=== PATIENT | female | born 1985 | race Caucasian/White ===

== ENCOUNTER 2017-04-04 12:04 | Observation (INO) | payer OTHER ==
[~2017-04-04] VITALS: Ht 167.6 cm; Wt 91.5 kg
[2017-04-04] MEDS ORDERED: GLUCOPHAGE500 MG PO (17:43)
[2017-04-04] MEDS ORDERED: WELLBUTRIN SR150 MG PO (17:44)
[2017-04-04] MEDS ORDERED: OMEPRAZOLE40 MG PO (17:45)
[2017-04-05 09:19] VITALS: Ht 167.6 cm; Wt 91.5 kg
[2017-04-06] MEDS ORDERED: QUESTRAN LIG1 PACKET PO (11:16)
[2017-04-06] MEDS ORDERED: LEVSIN/ANASP0.125 MG SL (11:17)
[2017-04-06 12:09] VITALS: BP 116/70
== END 2017-04-06 14:46 | disposition home or self-care (01) ==
LOC: D.ER 12:04 → D.M2 15:59 → OBSVTIME 15:59 → D.M2 15:59
PROVIDERS: ADMIT Family Medicine
DX: K62.1 Rectal polyp (principal); K64.8 Other hemorrhoids; K29.70 Gastritis, unspecified, without bleeding; K20.9 Esophagitis, unspecified; K29.80 Duodenitis without bleeding; K44.9 Diaphragmatic hernia without obstruction or gangrene; K21.9 Gastro-esophageal reflux disease without esophagitis; E11.65 Type 2 diabetes mellitus with hyperglycemia; F41.9 Anxiety disorder, unspecified; G43.909 Migraine, unspecified, not intractable, without status migrainosus; Z72.0 Tobacco use

== ENCOUNTER 2017-10-12 16:11 | Observation (INO) | payer OTHER ==
[~2017-10-12] VITALS: Ht 167.6 cm; Wt 95.9 kg
[~2017-10-12 16:11] MED LIST: GLUCOPHAGE500 MG PO; LEVSIN/ANASP0.125 MG SL; OMEPRAZOLE40 MG PO; QUESTRAN LIG1 PACKET PO; WELLBUTRIN SR150 MG PO
[2017-10-12] MEDS ORDERED: VALIUM10 MG PO (16:35)
[2017-10-12 17:15] LABS: BASOPHILS 0.2 % (0-2); EOSINOPHILS 1.7 % (0-7); HEMATOCRIT 41.3 % (36.0-48.0); HEMOGLOBIN 13.9 g/dL (12-16); IMMATURE GRANULOCYTES 0.3 % (0-5); LYMPHOCYTES 38.1 % (15-50); MCH 29.2 pg (26.0-34.0); MCHC 33.7 g/dL (31.0-37.0); MCV 86.8 fL (80.0-100.0); MEAN PLATELET VOLUME 9.8 fL (7.4-10.4); NEUTROPHILS 52.7 % (40-80); PLATELET COUNT 282 10x3/uL (130-400); RBC 4.76 10x6/uL (4.00-5.40); WBC 8.8 10x3/uL (4.8-10.8)
[2017-10-12 17:39] LABS: ALKALINE PHOSPHATASE 56 U/L (46-116); ALT (SGPT) 21 U/L (10-68); BILIRUBIN - TOTAL 0.42 mg/dL (0.2-1.3); CALC OSMOLALITY 281 mosm/kg (275-300); CALCIUM 9.1 mg/dL (8.5-10.1); CARBON DIOXIDE 26.3 mmol/L (21.0-32.0); CHLORIDE - SERUM 106 mmol/L (98-107); CREATININE - SERUM 0.7 mg/dL (0.6-1.3); GLUCOSE 119 mg/dL (74-106); POTASSIUM - SERUM 3.8 mmol/L (3.5-5.1); PROTEIN - SERUM 7.5 g/dL (6.4-8.2); SODIUM 142 mmol/L (136-145); UREA NITROGEN 8 mg/dL (7-18); eGFR NON AFRICAN AMERICAN > 90 mL/min (90-120)
[2017-10-12 17:43] LABS: INR 1.09 (0.85-1.17); PROTIME 13.7 SECONDS (11.6-15.0)
[2017-10-12 18:12] VITALS: BP 151/83
[2017-10-12 20:17] VITALS: BMI 34.1
[2017-10-12 20:23] VITALS: BP 119/78
[2017-10-13 00:19] VITALS: BP 108/65
[2017-10-13 03:38] VITALS: BP 110/66
[2017-10-13 08:04] VITALS: Ht 167.6 cm; Wt 95.9 kg
[2017-10-13 08:11] VITALS: BP 118/64
[2017-10-13] MEDS ORDERED: HYDROCODON-ACE1 EAC7 PO (11:41)
[2017-10-13 12:46] VITALS: BP 111/67
== END 2017-10-13 14:50 | disposition home or self-care (01) ==
LOC: D.MS 16:11 → OBSVTIME 16:11 → D.MS 16:11
PROVIDERS: Family Medicine
DX: N94.0 Mittelschmerz (principal); E11.65 Type 2 diabetes mellitus with hyperglycemia

== ENCOUNTER 2018-02-06 12:39 | Emergency (ER) | payer OTHER ==
[~2018-02-06] VITALS: Ht 167.6 cm; Wt 95.0 kg
[~2018-02-06 12:39] MED LIST changes: +HYDROCODON-ACE1 EAC7 PO; +VALIUM10 MG PO
[2018-02-06 12:48] VITALS: Ht 167.6 cm; Wt 95.0 kg
[2018-02-06] MEDS ORDERED: ABILIFY2 MG PO (12:49)
[2018-02-06] MEDS ORDERED: LIPITOR10 MG PO (12:49)
[2018-02-06 13:16] LABS: BASOPHILS 0.2 % (0-2); EOSINOPHILS 1.5 % (0-7); HEMATOCRIT 40.9 % (36.0-48.0); HEMOGLOBIN 14.2 g/dL (12-16); IMMATURE GRANULOCYTES 0.2 % (0-5); LYMPHOCYTES 31.6 % (15-50); MCH 29.9 pg (26.0-34.0); MCHC 34.7 g/dL (31.0-37.0); MCV 86.1 fL (80.0-100.0); MONOCYTES 5.8 % (2-11); NEUTROPHILS 60.7 % (40-80); PLATELET COUNT 282 10x3/uL (130-400); RBC 4.75 10x6/uL (4.00-5.40); RDW 13.8 % (11.5-14.5)
[2018-02-06 13:28] LABS: APPEARANCE CLEAR (CLEAR); COLOR YELLOW (YELLOW); GLUCOSE NEGATIVE (NEGATIVE); KETONE NEGATIVE (NEGATIVE); NITRITE NEGATIVE (NEGATIVE); PROTEIN NEGATIVE (NEGATIVE)
[2018-02-06 13:29] LABS: BACTERIA FEW /hpf (NONE SEEN); BILIRUBIN NEGATIVE (NEGATIVE); EPITHELIAL CELLS 0-5 /hpf (0-5); MUCUS <1+ /lpf (NONE SEEN); RED CELLS - URINE 0-5 /hpf (0-5); UROBILINOGEN NORMAL (NORMAL); WHITE CELLS - URINE RARE /hpf (0-5)
[2018-02-06 13:40] LABS: ALBUMIN 3.9 g/dL (3.4-5.0); ALKALINE PHOSPHATASE 59 U/L (46-116); ALT (SGPT) 16 U/L (10-68); AMYLASE - SERUM 64 U/L (25-115); BILIRUBIN - TOTAL 0.28 mg/dL (0.2-1.3); CALC OSMOLALITY 280 mosm/kg (275-300); CALCIUM 9.3 mg/dL (8.5-10.1); CARBON DIOXIDE 28.1 mmol/L (21.0-32.0); CHLORIDE - SERUM 104 mmol/L (98-107); CREATININE - SERUM 0.6 mg/dL (0.6-1.3); GLUCOSE 154 mg/dL (74-106); LIPASE 279 U/L (73-393); POTASSIUM - SERUM 3.9 mmol/L (3.5-5.1); PROTEIN - SERUM 7.4 g/dL (6.4-8.2); SODIUM 140 mmol/L (136-145); UREA NITROGEN 9 mg/dL (7-18); eGFR NON AFRICAN AMERICAN > 90 mL/min (90-120)
[2018-02-06] MEDS ORDERED: LOMOTIL TABLET1 TAB PO (16:47)
[2018-02-06 17:53] VITALS: BP 118/83
== END 2018-02-06 18:04 | disposition home or self-care (01) ==
LOC: D.ER 12:39
PROVIDERS: Family Medicine
DX: R10.30 Lower abdominal pain, unspecified (principal); R11.2 Nausea with vomiting, unspecified; F17.200 Nicotine dependence, unspecified, uncomplicated

== ENCOUNTER → 2018-04-06 17:04 | Outpatient (CLI) | payer OTHER ==
[2018-02-06 12:48] VITALS: BMI 33.8
[~2018-04-06 17:04] MED LIST changes: +ABILIFY2 MG PO; +LIPITOR10 MG PO; +LOMOTIL TABLET1 TAB PO
== END | disposition home or self-care (01) ==
LOC: D.CT 17:04
DX: R31.9 Hematuria, unspecified (principal)

== ENCOUNTER 2019-02-08 19:54 | Inpatient (IN) | payer OTHER ==
[~2019-02-08] VITALS: Ht 167.6 cm; Wt 95.3 kg
[2019-02-08 20:34] LABS: BASOPHILS 0.2 % (0-2); EOSINOPHILS 1.3 % (0-7); HEMATOCRIT 38.8 % (36.0-48.0); HEMOGLOBIN 14.1 g/dL (12-16); IMMATURE GRANULOCYTES 0.1 % (0-5); MCH 31.6 pg (26.0-34.0); MCHC 36.3 g/dL (31.0-37.0); MEAN PLATELET VOLUME 9.5 fL (7.4-10.4); MONOCYTES 7.3 % (2-11); NEUTROPHILS 50.1 % (40-80); PLATELET COUNT 279 10x3/uL (130-400); RBC 4.46 10x6/uL (4.00-5.40); RDW 12.4 % (11.5-14.5); WBC 9.2 10x3/uL (4.8-10.8)
[2019-02-08 20:41] VITALS: BP 121/73
[2019-02-08 20:48] LABS: ALBUMIN 4.1 g/dL (3.4-5.0); ALKALINE PHOSPHATASE 59 U/L (46-116); ALT (SGPT) 32 U/L (10-68); BILIRUBIN - TOTAL 0.39 mg/dL (0.2-1.3); CALCIUM 9.8 mg/dL (8.5-10.1); CHLORIDE - SERUM 102 mmol/L (98-107); CREATININE - SERUM 0.7 mg/dL (0.6-1.3); POTASSIUM - SERUM 3.9 mmol/L (3.5-5.1); PROTEIN - SERUM 7.6 g/dL (6.4-8.2); SODIUM 138 mmol/L (136-145); UREA NITROGEN 5 mg/dL (7-18); eGFR NON AFRICAN AMERICAN > 90 mL/min (90-120)
[2019-02-08 20:51] LABS: AMYLASE - SERUM 51 U/L (25-115); LIPASE 169 U/L (73-393)
[2019-02-08 20:52] LABS: CALC OSMOLALITY 272 mosm/kg (275-300); GLUCOSE 95 mg/dL (74-106); TROPONIN-I < 0.017 ng/mL (0.000-0.060)
[2019-02-08 21:30] LABS: APPEARANCE CLEAR (CLEAR); COLOR STRAW (YELLOW)
[2019-02-08 21:31] LABS: BILIRUBIN NEGATIVE (NEGATIVE); GLUCOSE NEGATIVE (NEGATIVE); KETONE NEGATIVE (NEGATIVE); NITRITE NEGATIVE (NEGATIVE); PROTEIN NEGATIVE (NEGATIVE); SPECIFIC GRAVITY 1.005 (1.005-1.020); UROBILINOGEN NORMAL (NORMAL)
[2019-02-08 22:37] VITALS: BP 117/74
[2019-02-08 23:53] VITALS: BP 117/75
[2019-02-09 00:45] VITALS: BP 109/61
[2019-02-09 00:54] VITALS: BP 109/61; BMI 33.9
[2019-02-09 04:00] VITALS: BP 90/44
[2019-02-09 06:28] LABS: BASOPHILS 0.3 % (0-2); EOSINOPHILS 3.6 % (0-7); HEMATOCRIT 37.2 % (36.0-48.0); HEMOGLOBIN 12.8 g/dL (12-16); IMMATURE GRANULOCYTES 0.1 % (0-5); LYMPHOCYTES 36.9 % (15-50); MCH 30.8 pg (26.0-34.0); MCHC 34.4 g/dL (31.0-37.0); MEAN PLATELET VOLUME 9.7 fL (7.4-10.4); MONOCYTES 10.1 % (2-11); PLATELET COUNT 256 10x3/uL (130-400); RBC 4.16 10x6/uL (4.00-5.40); RDW 12.5 % (11.5-14.5)
[2019-02-09 06:30] LABS: ALBUMIN 3.3 g/dL (3.4-5.0); ALKALINE PHOSPHATASE 48 U/L (46-116); ALT (SGPT) 33 U/L (10-68); BILIRUBIN - TOTAL 0.49 mg/dL (0.2-1.3); CALC OSMOLALITY 279 mosm/kg (275-300); CALCIUM 8.5 mg/dL (8.5-10.1); CARBON DIOXIDE 28.6 mmol/L (21.0-32.0); CHLORIDE - SERUM 106 mmol/L (98-107); CREATININE - SERUM 0.7 mg/dL (0.6-1.3); GLUCOSE 112 mg/dL (74-106); POTASSIUM - SERUM 3.9 mmol/L (3.5-5.1); PROTEIN - SERUM 6.2 g/dL (6.4-8.2); SODIUM 141 mmol/L (136-145); UREA NITROGEN 6 mg/dL (7-18); eGFR NON AFRICAN AMERICAN > 90 mL/min (90-120)
[2019-02-09 06:46] LABS: MCV 89.4 fL (80.0-100.0); WBC 6.7 10x3/uL (4.8-10.8)
[2019-02-09 08:00] VITALS: BP 106/52
--- NOTE | 2019-02-09 08:44 | NUR ---
PATIENT GIVEN MORPHINE AND ZOFRAN FOR RIGHT UPPER QUAD PAIN AND NAUSEA, AND IS RESTING NO WITH EYES CLOSED. CL IN REACH
[2019-02-09 10:47] VITALS: Ht 167.6 cm; Wt 95.3 kg
--- NOTE | 2019-02-09 17:01 | NUR ---
PATIENT GIVEN MORPHINE AND ZOFRAN IV FOR NAUSEA AND ABDOMINAL PAIN. CL IN REACH
[2019-02-09 20:00] VITALS: BP 126/70
--- NOTE | 2019-02-09 20:09 | MORECARE ---
CASE MANAGEMENT DISCHARGE SUMMARY PATIENT: VISHAL TAYLOR UNIT: [id number] ADM DATE: 02/08/19 AGE: 33 : 81 SEX: F [facility] AUTHOR: TORIE MONACO PHYSICIAN: REFERRING PHYSICIAN: CLEMENTE ROY MD DATE OF SERVICE: 02/09/19 Discharge Plan Patient Name: VISHAL TAYLOR Facility: [facility]:[place] : 1985 Planned Disposition: Home Anticipated Discharge Date: Discharge Date: Expected LOS: Initial Reviewer: [email or web address] Initial Review Date: 02/09/2019 Generated: 02/09/19 9:09 pm Patient Name: VISHAL TAYLOR Page [id number] at 2008 All edits/amendments must be made on the electronic document DICTATION DATE: 02/09/192008 [place]O K[place]A KAUPAPA MAORI: JUWAN 02/09/192008 RPT#: [id number] DC DATE: STATUS: ADM IN [facility] [address] [place] [address] END OF REPORT
--- NOTE | 2019-02-09 20:16 | MORECARE ---
CASE MANAGEMENT DISCHARGE SUMMARY PATIENT: VISHAL TAYLOR UNIT: [id number] ADM DATE: 02/08/19 AGE: 33 : 81 SEX: F ROOM/BED: D.1205 AUTHOR: JACINDA,DOC PHYSICIAN: REFERRING PHYSICIAN: CLEMENTE ROY MD DATE OF SERVICE: 02/09/19 Discharge Plan Patient Name: VISHAL TAYLOR Facility: [facility]:[place] : 1985 Planned Disposition: Home Anticipated Discharge Date: Discharge Date: Expected LOS: Initial Reviewer: [email or web address] Initial Review Date: 02/09/2019 Generated: 02/09/19 9:15 pm Comments DCP- Discharge Planning Updated by [email or web address]: Mary Martinez on 02/09/19 7:[address] Patient Name: VISHAL TAYLOR Admission Status: ER Accout number: [id number] Admission Date: 02-08-2019 : 1985 Admission Diagnosis:RIGHT UPPER QUADRANT PAIN Attending: CLEMENTE FAIRBANKS Current LOS: 1 Anticipated DC Date: Planned Disposition: Home [facility] [place] Discharge Planning Comments: CM met with patient and spouse (Maria Esther) at bedside after explaining CM role and obtaining verbal consent. Patient lives at home with her Maria Esther and plans to return there upon discharge. Patient feels this would be a safe discharge. CM discussed availability / needs of home health and medical equipment. Patient denies any discharge needs at this time. Patient states she will have her drive her home upon discharge. CM will continue to follow and assist as needed with discharge planning / needs. Maintenance Planner: Mary Martinez DCPIA - Discharge Planning Initial Assessment Updated by [email or web address]: Mary Martinez on 02/09/19 8:10 pm * Is the patient Alert and Oriented? Yes * How many steps to enter\exit or inside your home? * PCP LES * [facility] * Preadmission Environment Home with Family * ADLs Independent * Equipment None * List name and contact numbers for known caregivers / representatives who currently or will assist patient after discharge: MARIA ESTHER TAYLOR - SPOUSE- [phone] * Verbal permission to speak to the caregivers and representatives has been obtained from the patient. Yes * Community resources currently utilized None * Additional services required to return to the preadmission environment? No * Can the patient safely return to the preadmission environment? Yes * Has this patient been hospitalized within the prior 30 days at any hospital? No Last DP export: 02/09/19 7:09 p Patient Name: VISHAL TAYLOR Page [id number] at 2016 All edits/amendments must be made on the electronic document DICTATION DATE: 02/09/192014 CERTIFIED TUMOR REGISTRAR: JUWAN 02/09/192014 RPT#: [id number] DC DATE: STATUS: ADM IN [facility] [address] [place] [address] END OF REPORT
[2019-02-10] VITALS: BP 99/38
[2019-02-10 04:11] VITALS: BP 112/74
--- NOTE | 2019-02-10 07:55 | NUR ---
PT IS AOX4 RESP EVEN AND NONLABORED PT DENIES NEEDS AT THIS TIME. LUNG SOUNDS CLEAR HRR, NO EDEMA NOTED. IV TO RIGHT WRIST PATENT AND INTACT AT THIS TIME. SRX2 BED AT LOWEST POSITION AND LOCKED CALL LIGHT WITHIN REACH WILL CONTINUE TO MONITOR
[2019-02-10 09:34] VITALS: BP 108/75
--- NOTE | 2019-02-10 19:45 | NUR ---
PATIENT RESTING IN BED WITH GUESTS AT BEDSIDE AND NO S/S OF DISTRESS. PATIENT DENIES NEEDS AT THIS TIME. BED IN LOWEST POSITION AND CALL LIGHT WITHIN REACH. ENCOURAGED THE PATIENT TO CALL IF SHE HAS NEEDS. WILL CONTINUE TO MONITOR.
[2019-02-10 20:00] VITALS: BP 117/74
[2019-02-11] VITALS: BP 119/81
[2019-02-11 04:00] VITALS: BP 117/74
[2019-02-11 06:30] LABS: BASOPHILS 0.2 % (0-2); EOSINOPHILS 1.9 % (0-7); HEMATOCRIT 38.6 % (36.0-48.0); HEMOGLOBIN 13.5 g/dL (12-16); IMMATURE GRANULOCYTES 0.3 % (0-5); LYMPHOCYTES 24.8 % (15-50); MCH 31.1 pg (26.0-34.0); MCV 88.9 fL (80.0-100.0); MEAN PLATELET VOLUME 10.1 fL (7.4-10.4); MONOCYTES 5.9 % (2-11); NEUTROPHILS 66.9 % (40-80); PLATELET COUNT 219 10x3/uL (130-400); RBC 4.34 10x6/uL (4.00-5.40); RDW 12.3 % (11.5-14.5); WBC 8.8 10x3/uL (4.8-10.8)
[2019-02-11 06:51] LABS: ALKALINE PHOSPHATASE 50 U/L (46-116); ALT (SGPT) 32 U/L (10-68); BILIRUBIN - TOTAL 0.75 mg/dL (0.2-1.3); CALC OSMOLALITY 273 mosm/kg (275-300); CALCIUM 7.8 mg/dL (8.5-10.1); CARBON DIOXIDE 22.7 mmol/L (21.0-32.0); CHLORIDE - SERUM 106 mmol/L (98-107); CREATININE - SERUM 0.5 mg/dL (0.6-1.3); POTASSIUM - SERUM 4.1 mmol/L (3.5-5.1); PROTEIN - SERUM 6.1 g/dL (6.4-8.2); SODIUM 139 mmol/L (136-145); UREA NITROGEN 7 mg/dL (7-18); eGFR NON AFRICAN AMERICAN > 90 mL/min (90-120)
[2019-02-11 06:55] LABS: GLUCOSE 63 mg/dL (74-106)
--- NOTE | 2019-02-11 07:55 | NUR ---
PT LYING IN BED RESP EVEN AND NONLABORED IV TO LEFT WRIST PATENT AND INTACT AT THIS TIME PT DENIES NEEDS AT THIS TIME. SRX2 BED AT LOWEST SETTING CALL LIGHT WITHIN REACH AT THIS TIME. WILL CONTINUE TO MONITOR
[2019-02-11 08:40] VITALS: BP 112/72
--- NOTE | 2019-02-11 19:18 | NUR ---
PATIENT RESTING IN BED AND REQUESTED ICE AT THIS TIME. BED IN LOWEST POSITION AND CALL LIGHT WITHIN REACH. ENCOURAGED THE PATIENT TO CALL IF SHE HAS NEEDS. WILL CONTINUE TO MONITOR.
[2019-02-11 19:40] VITALS: BP 126/74
[2019-02-11 23:30] VITALS: BP 125/71
[2019-02-12 04:38] VITALS: BP 116/86
--- NOTE | 2019-02-12 07:07 | NUR ---
REPORT RECIEVED. PT HAS L WRIST PIV INFUSING ZOFRAN @ 7.4 AND NS @ 125. RR EVEN AND UNLABORED. NO DISTRESS NOTED. PT STATES HER PAIN IS "ABOUT A 6" AFTER PAIN MEDS ADMINISTERED. PT HAS NO NEEDS AT THIS TIME. WILL CTM.
[2019-02-12 07:24] LABS: BASOPHILS 0.3 % (0-2); EOSINOPHILS 3.3 % (0-7); HEMATOCRIT 36.9 % (36.0-48.0); HEMOGLOBIN 12.9 g/dL (12-16); IMMATURE GRANULOCYTES 0.1 % (0-5); LYMPHOCYTES 32.8 % (15-50); MCH 30.9 pg (26.0-34.0); MCV 88.5 fL (80.0-100.0); MEAN PLATELET VOLUME 9.8 fL (7.4-10.4); MONOCYTES 5.1 % (2-11); NEUTROPHILS 58.4 % (40-80); PLATELET COUNT 252 10x3/uL (130-400); RBC 4.17 10x6/uL (4.00-5.40); RDW 12.4 % (11.5-14.5)
[2019-02-12 07:34] LABS: ALBUMIN 3.2 g/dL (3.4-5.0); ALKALINE PHOSPHATASE 56 U/L (46-116); ALT (SGPT) 36 U/L (10-68); BILIRUBIN - TOTAL 0.58 mg/dL (0.2-1.3); CALC OSMOLALITY 274 mosm/kg (275-300); CARBON DIOXIDE 19.5 mmol/L (21.0-32.0); CHLORIDE - SERUM 107 mmol/L (98-107); CREATININE - SERUM 0.6 mg/dL (0.6-1.3); GLUCOSE 61 mg/dL (74-106); POTASSIUM - SERUM 3.8 mmol/L (3.5-5.1); PROTEIN - SERUM 6.3 g/dL (6.4-8.2); SODIUM 140 mmol/L (136-145); UREA NITROGEN 6 mg/dL (7-18); eGFR NON AFRICAN AMERICAN > 90 mL/min (90-120)
[2019-02-12 07:48] VITALS: BP 107/67
--- NOTE | 2019-02-12 12:42 | NUR ---
DC PAPER WORK REVIEWED AND SIGNED WITH PT. ALL QUESTIONS ANSWERED. PIV REMOVED CATH FULLY INTACT. TELEMETRY REMOVED AND RETURNED.
[2019-02-12 13:31] VITALS: BP 148/69
--- NOTE | 2019-02-12 14:12 | NUR ---
Nutrition Follow-up: Pt continues to report poor appetite & nausea. Reports drinking some apple juice and water this AM. Diet: clear liquid (x4 days) PO intake: 23% over last 9 meals BM: 02/09 No new wt Labs noted: Alb 3.2, Ca 8.0, Glu 61 Meds reviewed Rec ADAT as medically feasible. Pt on clear liquid diet x 4 days. May consider Procalamine to provide additional nutrition. RD following.
[2019-02-12 15:20] VITALS: BP 138/76
--- NOTE | 2019-02-12 19:32 | NUR ---
PATIENT RESTING IN BED AND DENIES NEEDS AT THIS TIME. BED IN LOWEST POSITION, CALL LIGHT WITHIN REACH, AND BED ALARM ON. ENCOURAGED THE PATIENT TO CALL IF SHE HAS NEEDS. WILL CONTINUE TO MONITOR.
[2019-02-12 19:35] VITALS: BP 110/68
--- NOTE | 2019-02-13 00:19 | NUR ---
WRAPPED PATIENT'S IV PER HER REQUEST FOR HER TO SHOWER. FULL LINEN CHANGE.
[2019-02-13 00:22] VITALS: BP 123/74
[2019-02-13 04:00] VITALS: BP 126/82
[2019-02-13 06:51] LABS: ALBUMIN 3.3 g/dL (3.4-5.0); ALKALINE PHOSPHATASE 51 U/L (46-116); ALT (SGPT) 38 U/L (10-68); BILIRUBIN - TOTAL 0.43 mg/dL (0.2-1.3); C-REACTIVE PROTEIN 0.6 mg/dL (0.0-0.9); CALC OSMOLALITY 276 mosm/kg (275-300); CALCIUM 8.3 mg/dL (8.5-10.1); CARBON DIOXIDE 22.6 mmol/L (21.0-32.0); CHLORIDE - SERUM 106 mmol/L (98-107); CREATININE - SERUM 0.5 mg/dL (0.6-1.3); GLUCOSE 72 mg/dL (74-106); POTASSIUM - SERUM 3.6 mmol/L (3.5-5.1); PROTEIN - SERUM 6.4 g/dL (6.4-8.2); SODIUM 141 mmol/L (136-145); eGFR NON AFRICAN AMERICAN > 90 mL/min (90-120)
[2019-02-13 06:53] LABS: UREA NITROGEN 3 mg/dL (7-18)
--- NOTE | 2019-02-13 07:47 | NUR ---
PT RESTING, EYES CLOSED. ASSESSMENT COMPLETE. VSS AT THIS TIME. DENIES NEEDS OR PAIN. RR EVEN AND UNLABORED. WILL CONTINUE TO MONITOR.
[2019-02-13] MEDS ORDERED: LEVAQUIN750 MG PO (09:00)
[2019-02-13] MEDS ORDERED: MIRALAX17 GM PO (09:01)
[2019-02-13] MEDS ORDERED: FLAGYL500 MG PO (09:01)
[2019-02-13] MEDS ORDERED: CARAFATE1 G PO (09:01)
[2019-02-13] MEDS ORDERED: PROTONIX40 MG PO (09:02)
[2019-02-13] MEDS ORDERED: PHENERGAN25 M1 PO (09:06)
[2019-02-13 09:14] LABS: ERYTHROCYTE SEDIMENTATION RATE 5 mm/hr (0-20)
[2019-02-13 09:15] LABS: BASOPHILS 0.1 % (0-2); EOSINOPHILS 4.3 % (0-7); HEMATOCRIT 36.5 % (36.0-48.0); HEMOGLOBIN 12.9 g/dL (12-16); IMMATURE GRANULOCYTES 0.1 % (0-5); LYMPHOCYTES 28.4 % (15-50); MCH 31.2 pg (26.0-34.0); MCHC 35.3 g/dL (31.0-37.0); MCV 88.4 fL (80.0-100.0); MEAN PLATELET VOLUME 10.1 fL (7.4-10.4); MONOCYTES 6.7 % (2-11); NEUTROPHILS 60.4 % (40-80); PLATELET COUNT 260 10x3/uL (130-400); RBC 4.13 10x6/uL (4.00-5.40); RDW 12.6 % (11.5-14.5); WBC 7.5 10x3/uL (4.8-10.8)
--- NOTE | 2019-02-13 10:38 | NUR ---
I have reviewed this patient and I concur with the Shift Assessment completed by the Licensed Practical Nurse today this shift.
--- NOTE | 2019-02-13 12:02 | NUR ---
IV INFLITRATED. D/C WITH CATHETER TIP INTACT.
--- NOTE | 2019-02-13 13:55 | NUR ---
D/C INSTRUCTIONS REVIEWED WITH PT. VERBALIZES UNDERSTANDING. NO FURTHER QUESTIONS. WAITING ON RIDE AT THIS TIME.
--- NOTE | 2019-02-13 14:07 | NUR ---
PT D/C VIA WHEELCHAIR TO [facility].
--- NOTE | 2019-02-15 07:33 | MORECARE ---
CASE MANAGEMENT DISCHARGE SUMMARY PATIENT: VISHAL TAYLOR UNIT: [id number] ADM DATE: 02/08/19 AGE: 33 : 81 SEX: F ROOM/BED: D.1205 AUTHOR: JACINDA,DOC PHYSICIAN: REFERRING PHYSICIAN: CLEMENTE ROY MD DATE OF SERVICE: 02/15/19 Discharge Plan Patient Name: VISHAL TAYLOR Facility: [facility]:[place] : 1985 Planned Disposition: Home Anticipated Discharge Date: Discharge Date: 02/13/2019 Expected LOS: Initial Reviewer: [email or web address] Initial Review Date: 02/09/2019 Generated: 02/15/19 8:33 am Comments DCP- Discharge Planning Updated by [email or web address]: Mary Martinez on 02/09/19 7:[address] Patient Name: VISHAL TAYLOR Admission Status: ER Accout number: [id number] Admission Date: 02-08-2019 : 1985 Admission Diagnosis:RIGHT UPPER QUADRANT PAIN Attending: CLEMENTE FAIRBANKS Current LOS: 1 Anticipated DC Date: Planned Disposition: Home [facility] [place] [facility] Discharge Planning Comments: CM met with patient and spouse (Maria Esther) at bedside after explaining CM role and obtaining verbal consent. Patient lives at home with her Maria Esther and plans to return there upon discharge. Patient feels this would be a safe discharge. CM discussed availability / needs of home health and medical equipment. Patient denies any discharge needs at this time. Patient states she will have her drive her home upon discharge. CM will continue to follow and assist as needed with discharge planning / needs. Superintendent Gas Distribution: Mary Martinez DCPIA - Discharge Planning Initial Assessment Updated by [id number]: Mary Martinez on 02/09/19 8:10 pm * Is the patient Alert and Oriented? Yes * How many steps to enter\exit or inside your home? * PCP LES * Pharmacy [facility] * Preadmission Environment Home with Family * ADLs Independent * Equipment None * List name and contact numbers for known caregivers / representatives who currently or will assist patient after discharge: MARIA ESTHER TAYLOR - SPOUSE- [phone] * Verbal permission to speak to the caregivers and representatives has been obtained from the patient. Yes * Community resources currently utilized None * Additional services required to return to the preadmission environment? No * Can the patient safely return to the preadmission environment? Yes * Has this patient been hospitalized within the prior 30 days at any hospital? No Last DP export: 02/09/19 7:16 p Patient Name: VISHAL TAYLOR Page [id number] at 0733 All edits/amendments must be made on the electronic document DICTATION DATE: 02/15/19732 WEIGHT ENGINEER: JUWAN 02/15/1935 RPT#: [id number] DC DATE:02/13/19 STATUS: DIS IN [facility] [address] [place] [address] END OF REPORT
== END 2019-02-13 14:08 | disposition home or self-care (01) | DRG 392 ==
LOC: D.ER 19:54 → D.M3 23:48
PROVIDERS: Family Medicine; ADMIT Family Medicine; ATTEND Family Medicine
DX: K52.9 Noninfective gastroenteritis and colitis, unspecified (principal); I88.0 Nonspecific mesenteric lymphadenitis; G43.909 Migraine, unspecified, not intractable, without status migrainosus; K42.9 Umbilical hernia without obstruction or gangrene; E66.9 Obesity, unspecified; Z68.33 Body mass index [BMI] 33.0-33.9, adult